=== PATIENT | female | born 1980 | race Caucasian/White ===

== ENCOUNTER → 2018-04-22 | Outpatient (CLI) | payer BC ==
--- NOTE | 2018-04-23 08:58 | MM ---
Reason for exam: clinical finding. Last mammogram was performed 5 years and 8 months ago. History: Patient is nulliparous. Benign cyst aspiration of both breasts, 2011. Taking hormonal contraceptives for 15 years beginning at age 15. Indicated problem(s): lump or thickening in the left breast. Physical Findings: Nurse Summary: 3cm nodule in the left breast at 12 o'clock (nurse pamela). MG 3D Diag Mammo W/Cad DORIS Bilateral CC and MLO view(s) were taken. XCCL view(s) were taken of the right breast. Prior study comparison: August 25, 2012, CAD bilateral diagnostic mammogram. The breast tissue is extremely dense which could obscure a lesion on mammography. Stable benign calcifications. There is chronic nodularity bilaterally. These results were verbally communicated with the patient and result sheet given to the patient on 04/22/18. ASSESSMENT: Incomplete: need additional imaging evaluation, BI-RAD 0 RECOMMENDATION: Ultrasound of both breasts.
--- NOTE | 2018-04-23 09:42 | USB ---
Reason for exam: additional evaluation requested from abnormal screening. History: Patient is nulliparous. Benign cyst aspiration of both breasts, 2011. Taking hormonal contraceptives for 15 years beginning at age 15. US Breast Limited BILAT Right limited breast ultrasound including focal area of concern, retroareolar and axilla demonstrates several oval, cystic lesions measuring 1.0 x 0.9 x 0.7cm at 12 o'clock, 1.2 x 0.9 x 0.8cm at 1 o'clock for which a 6 months follow up is recommended, 3.5 x 3.1 x 1.2cm at 2 o'clock, 2.0 x 1.6 x 0.7cm at 2 o'clock, 1.5 x 2.0 x 0.6cm at 11 o'clock and ductal ectasia at the posterior nipple. Left complete breast ultrasound includes all four quadrants, the retroareolar region and axilla. Finding demonstrates a 4.8 x 3.0 x 3.2cm oval, lobular, grouped, multicystic lesion at 12 o'clock, a 1.2 x 1.5 x 1.1cm oval, cystic lesion at 2 o'clock, a 1.5 x 1.7 x 1.2cm oval, cystic lesion at 3 o'clock, a 2.0 x 1.6 x 1.0cm oval, cystic lesion at 3 o'clock, a 0.5 x 0.4 x 0.4cm oval, hypoechoic lesion at 5 o'clock for which a 6 month follow up is recommended, a 0.7 x 0.8 x 0.5cm oval, cystic cluster at 9 o'clock, a 0.5 x 0.5 x 0.4cm cystic lesion at 10 o'clock, a 0.4 x 0.5 x 0.3cm mixed lesion at 11 o'clock and ductal ectasia at the posterior nipple. These results were verbally communicated with the patient and result sheet given to the patient on 04/22/18. ASSESSMENT: Probably benign, BI-RAD 3 RECOMMENDATION: Ultrasound of both breasts in 6 months.
== END ==
LOC: RADMAMWWP 13:27
PROVIDERS: ATTEND Family Medicine
DX: R92.8 Other abnormal and inconclusive findings on diagnostic imaging of breast (principal); N63.0 Unspecified lump in unspecified breast
CPT/HCPCS: 77062; 77066

== ENCOUNTER → 2018-11-15 | Outpatient (CLI) | payer BC ==
--- NOTE | 2018-11-16 15:11 | USB ---
Reason for exam: follow-up at short interval from prior study. History: Patient is nulliparous. Benign cyst aspiration of both breasts, 2011. Taking hormonal contraceptives for 15 years beginning at age 15. Physical Findings: Nurse Summary: Many cyst. US Breast BILAT Cyst too numerous to document up to 3.8 cm. 6 month follow up right 1 o'clock and left 5 o'clock. Bilateral complete breast ultrasound includes all four quadrants, the retroareolar region and axilla. Finding demonstrates on the right breast at the 1 o'clock position a 1.3 x 0.8 x 0.8 cm oval mixed lesion , circumscribed and previously measured 1.2 x 0.8 x 0.9cm, possible debris filled cyst, additional short term follow up is recommended. On the left breast at the 5 o'clock position unable to reproduce previously described area. These results were verbally communicated with the patient and result sheet given to the patient on 11/15/18. ASSESSMENT: Probably benign, BI-RAD 3 RECOMMENDATION: Follow-up diagnostic mammogram of both breasts in 5 months. Ultrasound of the right breast in 5 months. Ultrasound the 1 o'clock position. This will be a total 1 year follow up.
== END | disposition home or self-care (01) ==
LOC: RADMAMWWP 08:41
PROVIDERS: ATTEND Family Medicine
DX: R92.8 Other abnormal and inconclusive findings on diagnostic imaging of breast (principal)

== ENCOUNTER → 2019-06-22 | Outpatient (CLI) | payer BC ==
--- NOTE | 2019-06-22 11:27 | MM ---
Reason for exam: additional evaluation requested from prior study. Last mammogram was performed 1 year and 2 months ago. History: Patient is nulliparous. Benign cyst aspiration of both breasts, 2011. Took hormonal contraceptives for 15 years beginning at age 15. Physical Findings: Nurse Summary: 1cm nodule in the right breast at 12 o'clock (nurse марина). MG 3D Diag Mammo W/Cad DORIS Bilateral CC and MLO view(s) were taken. Prior study comparison: April 22, 2018, bilateral MG 3d diag mammo w/cad DORIS. August 25, 2012, CAD bilateral diagnostic mammogram. The breast tissue is extremely dense which could obscure a lesion on mammography. Focal asymmetry bilateral, changing. This finding is changed when compared with previous exams. These results were verbally communicated with the patient and result sheet given to the patient on 06/22/19. ASSESSMENT: Incomplete: need additional imaging evaluation, BI-RAD 0 RECOMMENDATION: Ultrasound of both breasts.
--- NOTE | 2019-06-22 11:32 | USB ---
Reason for exam: additional evaluation requested from abnormal screening. History: Patient is nulliparous. Benign cyst aspiration of both breasts, 2011. Took hormonal contraceptives for 15 years beginning at age 15. US Breast BILAT Right complete breast ultrasound includes all four quadrants, the retroareolar region and axilla. Finding demonstrates a 1.4 x 0.7 x 1.1cm oval, solid lesion at 1 o'clock BB previously measured 1.3 x 0.8 x 1.0cm on 11/15/18 and 1.2 x 0.8 x 0.9cm on 04/22/19, a 4.9 x 1.2 x 4.4cm cystic cluster at 2 o'clock, a 3.7 x 1.3 x 2.8cm cystic lesion at 7 o'clock and a 3.3 x 1.1 x 2.4cm cystic lesion at 10 o'clock. Left complete breast ultrasound includes all four quadrants, the retroareolar region and axilla. Finding demonstrates a 6.3 x 1.2 x 5.9cm cystic cluster at 2 o'clock. Multiple cystic areas bilaterally. These results were verbally communicated with the patient and result sheet given to the patient on 06/22/19. ASSESSMENT: Probably benign, BI-RAD 3 RECOMMENDATION: Surgical consultation of the right breast. (Regarding stable complexarea at palpable 1 o'clock position). Called with mammographic findings and has scheduled an appointment for the patient for 06/23/19 at 2:[address] Crawford. PRELIMINARY REPORT CALLED AND FAXED TO DR. CRAWFORD ON 06/22/19. Follow-up diagnostic mammogram and ultrasound of both breasts in 6 months.
== END | disposition home or self-care (01) ==
LOC: RADMAMWWP 08:39
PROVIDERS: ATTEND Nurse Practitioner Adult Health
DX: R92.8 Other abnormal and inconclusive findings on diagnostic imaging of breast (principal)
CPT/HCPCS: 77062; 77066

== ENCOUNTER → 2020-05-11 | Outpatient (CLI) | payer BC ==
--- NOTE | 2020-05-11 09:19 | MM ---
Reason for exam: follow-up at short interval from prior study. Last mammogram was performed 11 months ago. History: Patient is nulliparous. Benign ultrasound-guided core biopsy of the right breast, June 2019. Benign cyst aspiration of both breasts, 2011. Took hormonal contraceptives for 15 years beginning at age 15. Physical Findings: Nurse did not find any significant physical abnormalities on exam. MG 3D Diag Mammo W/Cad DORIS Bilateral CC and MLO view(s) were taken. Prior study comparison: June 22, 2019, bilateral MG 3d diag mammo w/cad DORIS. April 22, 2018, bilateral MG 3d diag mammo w/cad DORIS. Finding: There is a typically benign 21 mm circumscribed round mass located 6 cm from the nipple in the 2-3 o'clock position of the left breast consistent with cyst. Multiple additional smaller cyst like areas left breast. There is a 2.7cm cyst like area right lower outer quadrant, multiple additional smaller cyst like areas. Left upper outer quadrant cyst may be increased in size to 1.8cm. These results were verbally communicated with the patient and result sheet given to the patient on 05/11/20. ASSESSMENT: Suspicious, BI-RAD 4 RECOMMENDATION: Aspiration and ultrasound core biopsy of the left breast. (2 o'clock) Called Dr. Crawford's office with mammographic findings and has scheduled an appointment for the patient for 05/16/20 at 8:00 with Rosendo Ceballos PRELIMINARY REPORT CALLED AND FAXED TO DR. CRAWFORD ON 05/11/20.
--- NOTE | 2020-05-11 09:22 | USB ---
Reason for exam: follow-up at short interval from prior study. History: Patient is nulliparous. Benign ultrasound-guided core biopsy of the right breast, June 2019. Benign cyst aspiration of both breasts, 2011. Took hormonal contraceptives for 15 years beginning at age 15. US Breast Limited BILAT Right limited breast ultrasound including focal area of concern, retroareolar and axilla demonstrates a 13 x 8 x 18mm lobular, solid lesion at 1 o'clock, a 51 x 19 x 46mm oval, cystic lesion at 2 o'clock and a 24 x 23 x 30mm oval, cystic lesion at the posterior nipple. Left limited breast ultrasound including focal area of concern, retroareolar and axilla demonstrates a 21 x 15mm oval, cystic lesion at 2 o'clock, a 20 x 13mm oval, cystic lesion at 2 o'clock, a 11 x 6 x 10mm oval, mixed lesion at 2 o'clock for which a biopsy/cyst aspiration is recommended, a 13 x 9 x 25mm oval, lobular, cystic lesion at 2 o'clock and a 8 x 7 x 10mm cystic lesion at 3 o'clock. These results were verbally communicated with the patient and result sheet given to the patient on 05/11/20. ASSESSMENT: Suspicious, BI-RAD 4 RECOMMENDATION: Aspiration and ultrasound core biopsy of the left breast. (2 o'clock) Called Dr. Crawford's office with mammographic findings and has scheduled an appointment for the patient for 05/16/20 at 8:00 with Rosendo Cebalols PRELIMINARY REPORT CALLED AND FAXED TO DR. CRAWFORD ON 05/11/20.
== END | disposition home or self-care (01) ==
LOC: RADMAMWWP 07:04
PROVIDERS: ATTEND Family Medicine
DX: R92.8 Other abnormal and inconclusive findings on diagnostic imaging of breast (principal)
CPT/HCPCS: 77062; 77066

== ENCOUNTER → 2020-11-12 | Outpatient (CLI) | payer BC ==
--- NOTE | 2020-11-13 09:48 | MM ---
Reason for exam: follow-up at short interval from prior study. Last mammogram was performed 6 months ago. History: Patient is nulliparous. Benign ultrasound-guided core biopsy of the right breast, June 2019. Benign cyst aspiration of both breasts, 2011. Took hormonal contraceptives for 15 years beginning at age 15. Physical Findings: Nurse did not find any significant physical abnormalities on exam. MG 3D Diag Mammo W/Cad DORIS Bilateral CC and MLO view(s) were taken. Prior study comparison: May 11, 2020, bilateral MG 3d diag mammo w/cad DORIS. June 22, 2019, bilateral MG 3d diag mammo w/cad DORIS. April 22, 2018, bilateral MG 3d diag mammo w/cad DORIS. The breast tissue is heterogeneously dense. This may lower the sensitivity of mammography. Previous mammotome biopsy in the right breast. Regional calcifications bilaterally unchanged. Bilateral breast masses redemonstrated. Ultrasound recommended. These results were verbally communicated with the patient and result sheet given to the patient on 11/12/20. ASSESSMENT: Incomplete: need additional imaging evaluation, BI-RAD 0 RECOMMENDATION: Ultrasound of both breasts.
--- NOTE | 2020-11-13 09:55 | USB ---
Reason for exam: additional evaluation requested from abnormal screening. History: Patient is nulliparous. Benign ultrasound-guided core biopsy of the right breast, June 2019. Benign cyst aspiration of both breasts, 2011. Took hormonal contraceptives for 15 years beginning at age 15. US Breast BILAT Technologist: Lin Rizvi Right complete breast ultrasound includes all four quadrants, the retroareolar region and axilla. Finding demonstrates a 1.3 x 1.9 x 0.8cm hypoechoic lesion at 1 o'clock with possible duct extending from here with internal filling defect, new from 06/22/19, biopsy recommended, a 4.7 x 4.5 x 1.6cm oval, cystic lesion at 1 o'clock, a 3.1 x 2.4 x 2.1cm cystic lesion at 8 o'clock, a 2.1 x 1.7 x 1.0cm cystic lesion at 8 o'clock and a 1.7 x 1.3 x 1.2cm cystic lesion at 10 o'clock. Left complete breast ultrasound includes all four quadrants, the retroareolar region and axilla. Finding demonstrates a 1.0 x 0.9 x 0.6cm cystic lesion at 2 o'clock with mural based hypoechoic material, adherent debris versus complex cyst, biopsy recommended, a 2.3 x 1.8 x 1.3cm cystic lesion at 3 o'clock, a 1.0 x 1.1 x 0.9cm cystic lesion at 4 o'clock and a 1.8 x 1.6 x 0.8cm cystic lesion at 11 o'clock. Multiple cysts seen throughout bilateral breasts. These results were verbally communicated with the patient and result sheet given to the patient on 11/12/20. ASSESSMENT: Suspicious, BI-RAD 4 RECOMMENDATION: Ultrasound core biopsy of both breasts. Called office with mammographic findings and has scheduled an appointment for the patient for 11/19/20 at 4:[address] Crawford. PRELIMINARY REPORT CALLED AND FAXED TO DR. CRAWFORD ON 11/13/20.
== END | disposition home or self-care (01) ==
LOC: RADMAMWWP 12:54
PROVIDERS: ATTEND Family Medicine
DX: R92.8 Other abnormal and inconclusive findings on diagnostic imaging of breast (principal)
CPT/HCPCS: 77062; 77066

== ENCOUNTER → 2020-12-26 | Day surgery (SDC) | payer BC ==
[2020-12-26 12:17] VITALS: RESP 16; TEMP 98.6
[2020-12-26 14:48] VITALS: BP 139/84; PULSE 79
--- NOTE | 2020-12-26 15:56 | USB ---
EXAMINATION TYPE: US biopsy breast VAD RT, US biopsy breast VAD LT, MG postbiopsy diagnostic mammo BI wo CAD DATE OF EXAM: 12/26/2020 CLINICAL HISTORY: 40-year-old female N63.10 lump right breast, N63.20 lump in left breast. TECHNIQUE: Ultrasound guided core biopsy of the bilateral breasts. COMPARISON: 11/12/2020, 05/11/2020, 06/22/2019 and mammogram 11/12/2020. FINDINGS: The procedure of ultrasound guided core biopsy was explained to the patient. Benefits, alternatives, and risks were discussed. An informed consent was then obtained. The patient was placed in supine positioning for imaging and for the procedure. The overlying skin was prepped and draped in usual sterile fashion. ChloraPrep was utilized given patient's iodine allergy. Lidocaine was used as anesthetic into the skin and subcutaneous tissue up to area of concern in the within each breast in turn. RIGHT, 1:00: The 7 mm round hypoechoic lesion with possible contiguous duct containing an echogenic focus was identified and targeted for biopsy. We note that this shows slight progressive growth over the course of the last 2 prior. We also note that the patient has had a previous outside right breast biopsy and the echogenic focus just adjacent may correspond to the previous biopsy clip. Under ultrasound guidance, a 13-gauge vacuum-assisted mammotome biopsy gun was used to obtain 7 satisfactory core samples. The initial device malfunctioned. There were 8 attempts with the initial device. Following this, a wing clip was left in lesion. LEFT , 2:00: The 9 mm cystic lesion within either clumped up internal debris versus mural component was identified and targeted for biopsy. Under ultrasound guidance, a 13-gauge vacuum-assisted mammotome biopsy gun was used to obtain 5 core samples. Following this, a coil clip was left in lesion. The patient tolerated the procedure well without any immediate complication. The patient was kept in the radiology department for short stay after the procedure and then discharged home in stable condition. Post procedure mammogram shows clips in place. The previous outside coil clip is no longer identified on the right indicating that the currently sampled lesion did correspond to the previous biopsy site. IMPRESSION: Successful, uncomplicated ultrasound guided core biopsy of: - Right 1:00 hypoechoic lesion. Clip placement confirms that this corresponds to the previous outside biopsy site. A benign lesion is expected given this finding on the postprocedure mammogram. - Left 2:00 debris-filled versus complex cyst. Full pathology results to follow. Pathology Results: Benign A. 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 B. LEFT BREAST, TWO O'CLOCK, ULTRASOUND GUIDED CORE BIOSPY: Fibrocystic changes including cysts, fibrosis and columnar cell change. Recommendation 1 year follow up bilateral diagnostic mammogram given the bilateral breast nodularity. VITALYD
== END ==
LOC: RADUSWWP 12:00
PROVIDERS: ATTEND Family Medicine
DX: D24.1 Benign neoplasm of right breast (principal); R92.8 Other abnormal and inconclusive findings on diagnostic imaging of breast; Z88.4 Allergy status to anesthetic agent; Z88.0 Allergy status to penicillin; Z88.7 Allergy status to serum and vaccine; Z88.8 Allergy status to other drugs, medicaments and biological substances; Z91.048 Other nonmedicinal substance allergy status
CPT/HCPCS: 19083; 19084; 88305; 77066; A4648; J2001

== ENCOUNTER → 2022-01-16 | Outpatient (CLI) | payer BC ==
--- NOTE | 2022-01-16 09:51 | MM ---
Reason for exam: additional evaluation requested from prior study. Last mammogram was performed 1 year and 1 month ago. History: Patient is nulliparous. Benign US biopsy breast VAD LT of the left breast, December 26, 2020. Benign US biopsy breast VAD RT of the right breast, December 26, 2020. Benign ultrasound-guided core biopsy of the right breast, June 2019. Benign cyst aspiration of both breasts, 2011. Took hormonal contraceptives for 15 years beginning at age 15. Physical Findings: A clinical breast exam by your physician is recommended on an annual basis and results should be correlated with mammographic findings. MG 3D Diag Mammo W/Cad DORIS Bilateral CC and MLO view(s) were taken. Prior study comparison: December 26, 2020, bilateral MG diagnostic johnathon BI wo CAD. November 12, 2020, bilateral MG 3d diag mammo w/cad DORIS. The breast tissue is extremely dense which could obscure a lesion on mammography. There are multiple enlarging and developing rounded densities bilaterally. This finding is changed when compared with previous exams. ASSESSMENT: Incomplete: need additional imaging evaluation, BI-RAD 0 RECOMMENDATION: Ultrasound of both breasts.
--- NOTE | 2022-01-16 11:29 | USB ---
Reason for exam: additional evaluation requested from abnormal screening. History: Patient is nulliparous. Benign US biopsy breast VAD LT of the left breast, December 26, 2020. Benign US biopsy breast VAD RT of the right breast, December 26, 2020. Benign ultrasound-guided core biopsy of the right breast, June 2019. Benign cyst aspiration of both breasts, 2011. Took hormonal contraceptives for 15 years beginning at age 15. Physical Findings: A clinical breast exam by your physician is recommended on an annual basis and results should be correlated with mammographic findings. US Breast BILAT Technologist: Lin Rizvi Left complete breast ultrasound includes all four quadrants, the retroareolar region and axilla. Finding demonstrates a 2.55 x 2.0 x 1.4cm cystic septated/cluster at 1 o'clock, 7 cm from nipple, a 2.9 x 2.5 x 1.9cm cystic lesion at 2 o'clock, 7cm from nipple and a 1.1 x 1.3 x 0.9cm cystic lesion at 3 o'clock, 4cm from nipple. Right complete breast ultrasound includes all four quadrants, the retroareolar region and axilla. Finding demonstrates a 4.9 x 3.7 x 2.1cm cystic lesion at 1 o'clock, 2cm from nipple, a 3.0 x 2.3 x 1.8cm cystic lesion at 7 o'clock, 1cm from nipple, a 2.3 x 2.3 x 1.2cm cystic lesion at 7 o'clock, 5cm from nipple, a 1.6 x 0.8 x 0.5cm cystic cluster at 10 o'clock, 8cm from nipple and a 1.4 x 0.8 x 0.6cm cystic lesion with internal echoes and clip at 1 o'clock, 5cm from nipple. Multiple cysts seen throughout bilateral breasts. ASSESSMENT: Benign, BI-RAD 2 RECOMMENDATION: Routine screening mammogram of both breasts in 1 year. Manage patient on a clinical basis.
== END | disposition home or self-care (01) ==
LOC: RADMAMWWP 07:03
PROVIDERS: ATTEND Family Medicine
DX: R92.8 Other abnormal and inconclusive findings on diagnostic imaging of breast (principal)
CPT/HCPCS: 77062; 77066

== ENCOUNTER → 2022-09-15 | Outpatient (CLI) | payer BC ==
--- NOTE | 2022-09-15 08:24 | USB ---
Reason for Exam: Clinical finding. Patient History: Menarche at age 11. Patient has no children. Hormonal Contraceptives, starting at age 15 for 15 years. 2011, Bilateral Benign Cyst Aspiration. 06/2019, Benign Ultrasound-Guided Core Biopsy on the right side. 12/26/2020, Benign Core Biopsy on the left side. 12/26/2020, Benign Core Biopsy on the right side. Risk Values: Zina 5 year model risk: 2.1%. NCI Lifetime model risk: 16.9%. Technique: Method: Whole Breast Handheld. Prior Study Comparison: 11/12/2020 Bilateral Diagnostic Mammogram, [facility]. 12/26/2020 Bilateral Diagnostic Mammogram, [facility]. 01/16/2022 Bilateral Diagnostic Mammogram, [facility]. Findings: The whole breast of the left breast, the axilla of the left breast and the retroareolar of the left breast were scanned. At the site of clinical concern 7 cm from the nipple at the 10:00 position is a simple cyst measuring 2.9 x 1.8 cm. No solid mass is identified within the [id number] this time.. Overall Assessment: Benign, BI-RAD 2 Management: Screening Mammogram of both breasts in 5 months. A clinical breast exam by your physician is recommended on an annual basis and results should be correlated with mammographic findings. This exam should not preclude additional follow-up of suspicious palpable abnormalities. Results were given to the patient verbally at the time of exam. Electronically signed and approved by: Armani Gomes M.D. Radiologis
== END | disposition home or self-care (01) ==
LOC: RADUSWWP 07:34
PROVIDERS: ATTEND Family Medicine
DX: N63.20 Unspecified lump in the left breast, unspecified quadrant (principal)

== ENCOUNTER 2022-10-03 14:49 | Emergency (ER) | payer BC ==
[2022-10-03 15:02] VITALS: BP 145/89; PULSE 98; RESP 20; TEMP 97.7
[2022-10-03 16:01] LABS: Basophils # (A) 0.1 k/uL (0-0.2); Basophils % (A) 1 %; Eosinophils # (A) 0.1 k/uL (0-0.7); Eosinophils % (A) 1 %; HGB 14.4 gm/dL (11.4-16.0); Lymphocytes # (A) 2.4 k/uL (1.0-4.8); Lymphocytes % (A) 31 %; MCH 29.7 pg (25.0-35.0); MCHC 34.3 g/dL (31.0-37.0); MCV 86.6 fL (80.0-100.0); Mean Platelet Volume 7.1; Monocytes # (A) 0.4 k/uL (0-1.0); Monocytes % (A) 4 %; Neutrophils # (A) 4.8 k/uL (1.3-7.7); Neutrophils % (A) 61 %; Platelet Count 332 k/uL (150-450); RBC 4.85 m/uL (3.80-5.40); RDW 12.1 % (11.5-15.5); WBC 7.8 k/uL (3.8-10.6)
[2022-10-03 16:16] LABS: ALT 19 U/L (4-34); AST 27 U/L (14-36); African American GFR (CKD) >90 (>60 ml/min/1.73 sqM); Albumin 4.8 g/dL (3.5-5.0); Alkaline Phosphatase 60 U/L (38-126); Amylase 56 U/L (30-110); Anion Gap 10 mmol/L; Blood Urea Nitrogen 8 mg/dL (7-17); Calcium 9.4 mg/dL (8.4-10.2); Carbon Dioxide 23 mmol/L (22-30); Chloride 106 mmol/L (98-107); Glucose 89 mg/dL (74-99); Lipase 83 U/L (23-300); Non-African American GFR(CKD) 88 (>60 ml/min/1.73 sqM); Potassium 4.8 mmol/L (3.5-5.1); Sodium 139 mmol/L (137-145); Total Bilirubin 0.5 mg/dL (0.2-1.3); Total Protein 7.5 g/dL (6.3-8.2)
[2022-10-03] MEDS ORDERED: SODIUM CHLORIDE 0.9% 2,000 ML IV ONE (16:19)
[2022-10-03] MEDS ORDERED: ONDANSETRON 4 MG/2 ML VIAL IVP STA (16:19)
[2022-10-03 16:50] LABS: Appearance,Urine Clear (Clear); Bilirubin,Urine Negative (Negative); Blood,Urine Negative (Negative); Color,Urine Colorless; Glucose,Urine (UA) Negative (Negative); Ketones,Urine Negative (Negative); Leukocyte Esterase,Urine Negative (Negative); Nitrite,Urine Negative (Negative); Protein,Urine Negative (Negative); Specific Gravity,Urine 1.006 (1.001-1.035); Urobilinogen,Urine <2.0 mg/dL (<2.0)
--- NOTE | 2022-10-03 17:04 | ED ---
Nausea/Vomiting/Diarrhea HPI - General Chief complaint: Nausea/Vomiting/Diarrhea Stated complaint: diahhrea,abd pain Time Seen by Provider: 10/03/22 16:05 Source: patient Mode of arrival: ambulatory Limitations: no limitations - History of Present Illness Initial comments: Patient is a 42-year-old female presenting with chief complaint of nausea. Patient has had symptoms for the last 8 days. Patient previously had diarrhea, however she has been taking Imodium and states this has now resolved. Patient admits to occasional abdominal cramping and dry mouth and lips. She is concerned for dehydration. No fever or chills. No chest pain or difficulty breathing. No hematemesis, hematochezia, melena. No dizziness or weakness. - Related Data Home Medications Medication Instructions Recorded Confirmed Amitriptyline HCl [Elavil] 50 mg PO HS 12/17/20 12/26/20 Cholecalciferol (Vitamin D3) 1 each PO DAILY 12/17/20 12/26/20 [Vitamin D3 (5000 Iu)] DULoxetine HCL [Cymbalta] 30 mg PO HS 12/17/20 12/26/20 DULoxetine HCL [Cymbalta] 60 mg PO DAILY 12/17/20 12/26/20 Fexofenadine HCl [Josi Allergy] 60 mg PO DAILY 12/17/20 12/26/20 Ibuprofen 400 mg PO DAILY 12/17/20 12/26/20 Ibuprofen/Diphenhydramine HCl 2 each PO HS 12/17/20 12/26/20 [Advil Pm Liqui-Gels] Metaxalone [Skelaxin] 800 mg PO TID 12/17/20 12/26/20 Montelukast [Singulair] 10 mg PO DAILY 12/17/20 12/26/20 Omeprazole [PriLOSEC] 20 mg PO AC-BRKFST 12/17/20 12/26/20 cefUROXime axetiL [Ceftin] 500 mg PO BID 12/17/20 12/26/20 traMADol HCL [Ultram] 50 mg PO DAILY 12/17/20 12/26/20 traMADol HCL [Ultram] 100 mg PO HS 12/17/20 12/26/20 Previous Rx's Medication Instructions Recorded Ondansetron Odt [Zofran Odt] 4 mg PO Q8HR PRN #15 tab 10/03/22 Allergies Allergy/AdvReac Type Severity Reaction Status Date / Time iodine Allergy Rash/Hives Verified 10/03/22 15:03 metronidazole [From Flagyl] Allergy Unknown Verified 10/03/22 15:03 morphine Allergy Rash/Hives Verified 10/03/22 15:03 Penicillins Allergy Anaphylaxis Verified 10/03/22 15:03 propofol Allergy Anaphylaxis Verified 10/03/22 15:03 shellfish derived [Shellfish] Allergy Anaphylaxis Verified 10/03/22 15:04 vaccine adjuvant system, Allergy Anaphylaxis Verified 10/03/22 15:03 [id number] liposomal varenicline [From Chantix] Allergy Confusion Verified 10/03/22 15:03 Review of Systems ROS Statement: Those systems with pertinent positive or pertinent negative responses have been documented in the HPI. ROS Other: All systems not noted in ROS Statement are negative. 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 History of Any Multi-Drug Resistant Organisms: None Reported Additional Past Surgical History / Comment(s): 2 cervical spine surgery. Double cervical disc replacement. Spinal cord stimulator. Leep for cervical dysplasia bialteral breast biopsies Past Anesthesia/Blood Transfusion Reactions: Previous Problems w/ Anesthesia Additional Past Anesthesia/Blood Transfusion Reaction / Comment(s): propapol all ergy, anaphylaxis Past Psychological History: Depression Smoking Status: Former smoker Past Alcohol Use History: Occasional Past Drug Use History: None Reported - Past Family History Mother Family Medical History: Cancer, Diabetes Mellitus Additional Family Medical History / Comment(s): bladder cancer General Exam Limitations: no limitations General appearance: alert, in no apparent distress Head exam: Present: atraumatic, normocephalic, normal inspection Eye exam: Present: normal appearance, PERRL, EOMI. Absent: scleral icterus, conjunctival injection, periorbital swelling Neck exam: Present: normal inspection Respiratory exam: Present: normal lung sounds bilaterally. Absent: respiratory distress, wheezes, rales, rhonchi, stridor Cardiovascular Exam: Present: regular rate, normal rhythm, normal heart sounds. Absent: systolic murmur, diastolic murmur, rubs, gallop, clicks GI/Abdominal exam: Present: soft. Absent: distended, tenderness, guarding, rebound, rigid Neurological exam: Present: alert, oriented X3, CN II-XII intact Psychiatric exam: Present: normal affect, normal mood Skin exam: Present: warm, dry, intact, normal color. Absent: rash Course Vital Signs 10/03/22 14:59 Temperature 97.7 F Pulse Rate 98 Respiratory 20 Rate Blood Pressure 145/89 O2 Sat by Pulse 99 Oximetry Medical Decision Making - Medical Decision Making Patient is a 42-year-old female presenting with chief complaint of nausea. She is concerned for dehydration, she has had nausea and diarrhea for 8 days, diarrh ea has not resolved after using Imodium but nausea is persisting. No vomiting. She admits to occasional abdominal cramping. Physical examination is unremarkable. Lab work is grossly negative. Patient is given Zofran and IV fluids, she reports improvement in her symptoms on reassessment. She appears stable for discharge. Follow-up with PCP. Report back to ER with any new or worsening symptoms. Discussed return parameters and answered all questions. Patient conveyed verbal understanding and agreed to the plan. I discussed this case in detail with my attending Dr. Bar - Lab Data Result diagrams: 10/03/22 15:42 10/03/22 15:42 Lab Results 10/03/22 10/03/22 10/03/22 Range/Units 15:42 15:42 15:58 WBC 7.8 (3.8-10.6) k/uL RBC 4.85 (3.80-5.40) m/uL Hgb 14.4 (11.4-16.0) gm/dL Hct 42.0 (34.0-46.0) % MCV 86.6 (80.0-100.0) fL MCH 29.7 (25.0-35.0) pg MCHC 34.3 (31.0-37.0) g/dL RDW 12.1 (11.5-15.5) % Plt Count 332 (150-450) k/uL MPV 7.1 Neutrophils % 61 % Lymphocytes % 31 % Monocytes % 4 % Eosinophils % 1 % Basophils % 1 % Neutrophils # 4.8 (1.3-7.7) k/uL Lymphocytes # 2.4 (1.0-4.8) k/uL Monocytes # 0.4 (0-1.0) k/uL Eosinophils # 0.1 (0-0.7) k/uL Basophils # 0.1 (0-0.2) k/uL Sodium 139 (137-145) mmol/L Potassium 4.8 (3.5-5.1) mmol/L Chloride 106 (98-107) mmol/L Carbon Dioxide 23 (22-30) mmol/L Anion Gap 10 mmol/L BUN 8 (7-17) mg/dL Creatinine 0.82 (0.52-1.04) mg/dL Est GFR (CKD-EPI)AfAm >90 (>60 ml/min/1.73 sqM) Est GFR (CKD-EPI)NonAf 88 (>60 ml/min/1.73 sqM) Glucose 89 (74-99) mg/dL Calcium 9.4 (8.4-10.2) mg/dL Total Bilirubin 0.5 (0.2-1.3) mg/dL AST 27 (14-36) U/L ALT 19 (4-34) U/L Alkaline Phosphatase 60 (38-126) U/L Total Protein 7.5 (6.3-8.2) g/dL Albumin 4.8 (3.5-5.0) g/dL Amylase 56 (30-110) U/L Lipase 83 (23-300) U/L Urine Color Colorless Urine Appearance Clear (Clear) Urine pH 6.0 (5.0-8.0) Ur Specific [place] 1.006 (1.001-1.035) Urine Protein Negative (Negative) Urine Glucose (UA) Negative (Negative) Urine Ketones Negative (Negative) Urine Blood Negative (Negative) Urine Nitrite Negative (Negative) Urine Bilirubin Negative (Negative) Urine Urobilinogen <2.0 (<2.0) mg/dL Ur Leukocyte Esterase Negative (Negative) Disposition Clinical Impression: Nausea, Diarrhea Disposition: HOME SELF-CARE Condition: Good Instructions (If sedation given, give patient instructions): Acute Nausea and Vomiting (ED), Acute Diarrhea (ED) Additional Instructions: Follow-up with PCP. Report back to ER with any new or worsening symptoms. Stay well-hydrated. Take medication as prescribed. Prescriptions: Ondansetron Odt [Zofran Odt] 4 mg PO Q8HR PRN #15 tab PRN Reason: Nausea Is patient prescribed a controlled substance at d/c from ED?: No Referrals: Regan Crawford MD [Primary Care Provider] - 1-2 days Time of Disposition: 18:03
== END 2022-10-03 18:23 | disposition home or self-care (01) ==
LOC: EC 14:49
DX: R19.7 Diarrhea, unspecified (principal); R11.0 Nausea; F32.A Depression, unspecified; Z87.891 Personal history of nicotine dependence; Z91.041 Radiographic dye allergy status; Z88.0 Allergy status to penicillin; Z88.7 Allergy status to serum and vaccine; Z91.013 Allergy to seafood; Z88.8 Allergy status to other drugs, medicaments and biological substances
CPT/HCPCS: 36415; 80053; 82150; 83690; 85025; 81003; 99284; 96374; 96361; J2405

== ENCOUNTER → 2023-01-19 | Outpatient (CLI) | payer BC ==
--- NOTE | 2023-01-19 13:12 | USB ---
Reason for Exam: Clinical finding. Patient History: Menarche at age 11. Patient has no children. Perimenopausal. Hormonal Contraceptives, starting at age 15 for 15 years. 2011, Bilateral Benign Cyst Aspiration. 06/2019, Benign Ultrasound-Guided Core Biopsy on the right side. 12/26/2020, Benign Core Biopsy on the left side. 12/26/2020, Benign Core Biopsy on the right side. Risk Values: Zina 5 year model risk: 2.1%. NCI Lifetime model risk: 16.9%. Technique: Method: Whole Breast Handheld. Prior Study Comparison: 11/12/2020 Bilateral Diagnostic Mammogram, [facility]. 12/26/2020 Bilateral Diagnostic Mammogram, [facility]. 01/16/2022 Bilateral Diagnostic Mammogram, [facility]. Findings: The whole breast of the right breast, the axilla of the right breast and the retroareolar of the right breast were scanned. Again noted are multiple cysts throughout the right breast the largest at the 1:00 measures 5.7 x 2.4 cm essentially unchanged from prior study. There is a previously sampled lesion at the right o'clock position. No suspicious lesions seen.. Overall Assessment: Benign, BI-RAD 2 Management: Screening Mammogram of both breasts in 1 year. A clinical breast exam by your physician is recommended on an annual basis and results should be correlated with mammographic findings. This exam should not preclude additional follow-up of suspicious palpable abnormalities. Results were given to the patient verbally at the time of exam. Electronically signed and approved by: Armani Gomes M.D. Radiologis
--- NOTE | 2023-01-19 13:31 | MM ---
Reason for Exam: Additional evaluation requested from prior study. Last screening mammogram was performed 12 month(s) ago. Patient History: Menarche at age 11. Patient has no children. Perimenopausal. Hormonal Contraceptives, starting at age 15 for 15 years. 2011, Bilateral Benign Cyst Aspiration. 06/2019, Benign Ultrasound-Guided Core Biopsy on the right side. 12/26/2020, Benign Core Biopsy on the left side. 12/26/2020, Benign Core Biopsy on the right side. Risk Values: Zina 5 year model risk: 2.1%. NCI Lifetime model risk: 16.9%. Prior Study Comparison: 04/22/2018 Bilateral Diagnostic Mammogram, [facility]. 06/22/2019 Bilateral Diagnostic Mammogram, [facility]. 05/11/2020 Bilateral Diagnostic Mammogram, [facility]. 11/12/2020 Bilateral Diagnostic Mammogram, [facility]. 12/26/2020 Bilateral Diagnostic Mammogram, [facility]. 01/16/2022 Bilateral Diagnostic Mammogram, [facility]. Tissue Density: The breast tissue is extremely dense which could obscure a lesion on mammography. Findings: Analyzed By CAD. Extremely masses are likely related to cysts. Much improvement within the left breast noted with regards to nodularity. Right breast mass appears larger in size and ultrasound is advised. Stable benign-appearing punctate calcifications. Overall Assessment: Incomplete: need additional imaging evaluation, BI-RAD 0 Management: Diagnostic Breast Ultrasound of the right breast. A clinical breast exam by your physician is recommended on an annual basis and results should be correlated with mammographic findings. This exam should not preclude additional follow-up of suspicious palpable abnormalities. Results were given to the patient verbally at the time of exam. Electronically signed and approved by: Armani Gomes M.D. Radiologis
== END | disposition home or self-care (01) ==
LOC: RADMAMWWP 10:07
PROVIDERS: ATTEND Family Medicine
DX: R92.8 Other abnormal and inconclusive findings on diagnostic imaging of breast (principal); N60.01 Solitary cyst of right breast; N60.02 Solitary cyst of left breast
CPT/HCPCS: 77062; 77066

== ENCOUNTER → 2024-01-21 | Outpatient (CLI) | payer BC ==
--- NOTE | 2024-01-21 12:27 | MM ---
Reason for Exam: Screening (asymptomatic). Last screening mammogram was performed 12 month(s) ago. Patient History: Menarche at age 11. Patient has no children. Postmenopausal. Hormonal Contraceptives, starting at age 15 for 15 years. 2011, Bilateral Benign Cyst Aspiration. 06/2019, Benign Ultrasound-Guided Core Biopsy on the right side. 12/26/2020, Benign Core Biopsy on the left side. 12/26/2020, Benign Core Biopsy on the right side. Risk Values: Zina 5 year model risk: 2.3%. NCI Lifetime model risk: 16.7%. Prior Study Comparison: 04/22/2018 Bilateral Diagnostic Mammogram, [facility]. 06/22/2019 Bilateral Diagnostic Mammogram, [facility]. 05/11/2020 Bilateral Diagnostic Mammogram, [facility]. 11/12/2020 Bilateral Diagnostic Mammogram, [facility]. 12/26/2020 Bilateral Diagnostic Mammogram, [facility]. 01/16/2022 Bilateral Diagnostic Mammogram, [facility]. 01/19/2023 Bilateral MG 3D diag mammo w/cad [facility], [facility]. Tissue Density: The breasts are extremely dense, which lowers the sensitivity of mammography. Findings: Analyzed By CAD. The pattern is symmetrical. Stable oval focal asymmetric densities in the medial anterior right breast. Scattered benign punctate calcifications are bilaterally. Bilateral core markers are present. No suspicious groups of microcalcifications, spiculated or lobular masses, architectural distortion or other secondary signs of malignancy are mammographically apparent. Overall Assessment: Benign, BI-RAD 2 Management: Screening Mammogram of both breasts in 1 year. A negative mammogram report should not preclude additional follow up of suspicious palpable abnormalities. Patient should continue monthly self breast exam. A clinical breast exam by your physician is recommended on an annual basis and results should be correlated with mammographic findings. Electronically signed and approved by: Darren Trotter D.O. Radiologis
== END | disposition home or self-care (01) ==
LOC: RADMAMWWP 09:46
PROVIDERS: ATTEND Family Medicine
DX: Z12.31 Encounter for screening mammogram for malignant neoplasm of breast (principal); Z78.0 Asymptomatic menopausal state
CPT/HCPCS: 77063; 77067

== ENCOUNTER → 2024-03-23 | Outpatient (CLI) | payer BC | END | disposition home or self-care (01) | LOC: LABWHC1 13:54 | PROVIDERS: ATTEND Dermatology | DX: Z53.9 Procedure and treatment not carried out, unspecified reason (principal) ==

== ENCOUNTER → 2024-03-24 | Outpatient (CLI) | payer BC ==
[2024-03-24 15:31] LABS: BUN/Creat Ratio 8.73 Ratio (12.00-20.00); Blood Urea Nitrogen 9.6 mg/dL (9.0-27.0); Carbon Dioxide 24.2 mmol/L (21.6-31.8); Chloride 101 mmol/L (96-109); Chol/HDL Ratio 4.08 Ratio; Glucose 86 mg/dL (70-110); LDL Cholesterol,Calculated 132.1 mg/dL (0.0-131.0); Potassium 4.2 mmol/L (3.5-5.5); Sodium 140 mmol/L (135-145)
[2024-03-24 15:32] LABS: ALT 18 U/L (8-44); AST 14 U/L (13-35); Albumin 5.1 g/dL (3.8-4.9); Albumin/Globulin Ratio 2.22 Ratio (1.60-3.17); Alkaline Phosphatase 74 U/L (41-126); Bilirubin, Conjugated <0.20 mg/dL (0.20-0.40); Bilirubin,Unconjugated >0.10 mg/dL (0.20-1.00); Calcium 10.2 mg/dL (8.7-10.3); Globulin 2.3 g/dL (1.6-3.3); Total Bilirubin 0.3 mg/dL (0.3-1.2); Total Protein 7.4 g/dL (6.2-8.2)
[2024-03-24 15:59] LABS: Basophils # (A) 0.03 X 10*3/uL (0.00-0.10); Basophils % (A) 0.3 %; Eosinophils # (A) 0.08 X 10*3/uL (0.04-0.35); Eosinophils % (A) 0.9 %; HCT 45.9 % (37.2-46.3); HGB 15.4 g/dL (12.0-15.0); Lymphocytes # (A) 2.52 X 10*3/uL (0.90-5.00); Lymphocytes % (A) 28.8 %; MCH 29.7 pg (27.0-32.0); MCHC 33.6 g/dL (32.0-37.0); MCV 88.6 FL (80.0-97.0); Mean Platelet Volume 9.5 FL (9.5-12.2); Monocytes # (A) 0.56 X 10*3/uL (0.20-1.00); Monocytes % (A) 6.4 %; NRBC Per 100 WBC 0 X 10*3/uL (0.00-0.01); Neutrophils # (A) 5.54 X 10*3/uL (1.80-7.70); Neutrophils % (A) 63.3 %; Platelet Count 385 X 10*3/uL (140-440); RBC 5.18 X 10*6/uL (4.10-5.20); RDW 11.8 % (11.5-14.5); WBC 8.76 X 10*3/uL (4.50-10.00)
[2024-03-24 16:06] LABS: Hepatitis B Surface Antigen Nonreactive (Nonreactive); Hepatitis C IgG Antibody Nonreactive (Nonreactive)
== END | disposition home or self-care (01) ==
LOC: LABWHC1 09:35
PROVIDERS: ATTEND Dermatology
DX: L20.89 Other atopic dermatitis (principal)
CPT/HCPCS: 36415; 80048; 80061; 80076; 85025; 86480; 86704; 86706; 86803; 87340

== ENCOUNTER → 2024-07-20 | Outpatient (CLI) | payer BC ==
--- NOTE | 2024-07-29 09:44 | US ---
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 FINDINGS: Right parotid gland= 5.4 x 2.1 x 2.9 cm, small lymph node within parotid gland= 0.9 x 0.4 x 0.5, cor tical thickness= 0.2 cm , no organizing fluid collection or masses. IMPRESSION: Right parotid gland intraglandular lymph node. No suspicious masses. [facility], , 07/29/2024 9:42 AM
== END | disposition home or self-care (01) ==
LOC: RADUSWWP 15:39
PROVIDERS: ATTEND Family Medicine
DX: K11.9 Disease of salivary gland, unspecified
CPT/HCPCS: 76536

== ENCOUNTER 2024-07-22 12:16 | Day surgery (SDC) | payer BC ==
[2024-07-20 10:54] VITALS: BMI 32.3
[~2024-07-22 12:16] MED LIST: LIDOCAINE 1% (10MG/ML) FOR IV START INTRADERMA PRN
[2024-07-22 13:18] VITALS: TEMP 97.3
[2024-07-22] MEDS: IV FLUID CONTINUATION 1,000 ML IV ONE (13:18)
[2024-07-22] MEDS: LACTATED RINGERS 1,000 ML IV SCH (13:23)
[2024-07-22 13:43] LABS: Glucose,Whole Blood 94 mg/dL (70-110)
[2024-07-22] MEDS ORDERED: fentaNYL (PF) 50 MCG/ML 2 ML AMP ONE (14:27)
[2024-07-22] MEDS ORDERED: MIDAZOLAM 2 MG/2 ML VIAL ONE (14:27)
[2024-07-22] MEDS ORDERED: KETAMINE HCL IN 0.9 % NACL 50 MG/5 ML SYRINGE ONE (14:27)
[2024-07-22] MEDS ORDERED: ETOMIDATE 2 MG/ML 10 ML VIAL ONE (14:27)
--- NOTE | 2024-07-22 14:50 | P.PCN ---
Date of Procedure: 07/22/24 Procedure(s) Performed: BRIEF HISTORY: Patient is a 44-year-old pleasant white female scheduled for an elective colonoscopy as a part of screening for colon cancer. PROCEDURE PERFORMED: Colonoscopy. PREOPERATIVE DIAGNOSIS: Screening for l colon cancer. IV sedation per Anesthesia. PROCEDURE: After informed consent was obtained, the patient, was brought into the endoscopy unit. IV sedation was administered by Anesthesia under continuous monitoring. Digital rectal examination was normal. Initially the Olympus CF-160 flexible video colonoscope was then inserted in the rectum, gradually advanced into the cecum without any difficulty. Careful examination was performed as the scope was gradually being withdrawn. Ileocecal valve and the appendiceal orifice were visualized and appeared normal. Prep was fair.. Mucosa of the cecum, ascending colon, transverse colon, descending colon, sigmoid colon, and rectum appeared normal. Retroflexion was performed in the rectum and no lesions were seen. The patient tolerated the procedure well. IMPRESSION: Normal-appearing colon from rectum to cecum evidence of colorectal neoplasia. RECOMMENDATIONS: Findings of this examination were discussed with the patient as well as her family. She was advised to have repeat screening colonoscopy in 10 years.
[2024-07-22 15:22] VITALS: BP 127/74; PULSE 93; RESP 18
== END 2024-07-22 15:28 | disposition home or self-care (01) ==
LOC: ORWHC2ENDO 12:16
PROVIDERS: ATTEND Internal Medicine Gastroenterology
DX: Z12.11 Encounter for screening for malignant neoplasm of colon
CPT/HCPCS: 45378; 81025

== ENCOUNTER → 2024-07-28 | Outpatient (CLI) | payer BC ==
--- NOTE | 2024-07-28 16:08 | US ---
EXAMINATION TYPE: US kidneys/renal and bladder DATE OF EXAM: 07/28/2024 COMPARISON: NONE CLINICAL INDICATION: Female, 44 years old with history of R94.4 ABNORMAL RESULTS OF KIDNEY FUNCTION S TUDIES; Abnormal labs TECHNIQUE: Grayscale and color Doppler imaging of the bilateral kidneys and urinary bladder: EXAM MEASUREMENTS: Right Kidney: 9.9 x 4.7 x 4.9 cm Left Kidney: 10.8 x 5.1 x 4.2 cm Post Void Residual Volume: 72 mL - Pre-void volume= 638 mL Right Kidney: No hydronephrosis or masses seen Left Kidney: No hydronephrosis or masses seen Bladder: wnl Bilateral Jets seen: No Normal Post Void Residual: No There is no evidence for hydronephrosis at this point in time. No nephrolithiasis is seen. No leia s are identified. The urinary bladder is anechoic. Bilateral ureteral jets are seen. Renal cortical echogenicity and thickness is maintained. IMPRESSION: Normal renal ultrasound. [facility], , 07/28/2024 4:06 PM
== END | disposition home or self-care (01) ==
LOC: RADUSWWP 15:34
PROVIDERS: ATTEND Family Medicine
DX: R94.4 Abnormal results of kidney function studies (principal)
CPT/HCPCS: 76770

== ENCOUNTER → 2025-01-23 | Outpatient (CLI) | payer BC ==
--- NOTE | 2025-01-23 11:32 | MM ---
Reason for Exam: Screening (asymptomatic). Last screening mammogram was performed 12 month(s) ago. Patient History: Menarche at age 11. Patient has no children. Postmenopausal. Hormonal Contraceptives, starting at age 15 for 15 years. 2011, Bilateral Benign Cyst Aspiration. 06/2019, Benign Ultrasound-Guided Core Biopsy on the right side. 12/26/2020, Benign Core Biopsy on the left side. 12/26/2020, Benign Core Biopsy on the right side. Risk Values: Zina 5 year model risk: 2.4%. NCI Lifetime model risk: 16.4%. Prior Study Comparison: 01/16/2022 Bilateral Diagnostic Mammogram, [facility]. 01/19/2023 Bilateral MG 3D diag mammo w/cad [facility], [facility]. 01/21/2024 Bilateral MG 3D screening mammo w/cad, [facility]. Tissue Density: The breasts are heterogeneously dense, which may obscure small masses. Findings: Analyzed By CAD. There is no suspicious group of microcalcifications or new suspicious mass in either breast. The stable previously sampled the mass right breast. Stable benign calcifications seen bilaterally. Overall Assessment: Benign, BI-RAD 2 Management: Screening Mammogram of both breasts in 1 year. . Patient should continue monthly self-breast exams. A clinical breast exam by your physician is recommended on an annual basis. This exam should not preclude additional follow-up of suspicious palpable abnormalities. Note on Zina scores and lifetime risk: 1. A Zina score greater than 3% is considered moderate risk. If this is the case, consider specialist referral to assess eligibility for a risk reducing agent. 2. If overall lifetime risk for the development of breast cancer is 20% or higher, the patient may qualify for future screening with alternating mammogram and breast MRI. [facility], , 01/23/2025 11:29 AM. Electronically signed and approved by: Armani Gomes M.D. Radiologis
== END | disposition home or self-care (01) ==
LOC: RADMAMWWP 10:51
PROVIDERS: ATTEND Family Medicine
DX: Z12.31 Encounter for screening mammogram for malignant neoplasm of breast (principal); R92.333 Mammographic heterogeneous density, bilateral breasts; Z78.0 Asymptomatic menopausal state; Z92.0 Personal history of contraception
CPT/HCPCS: 77063; 77067